=== PATIENT | male | born 1945 | race Caucasian/White ===

== ENCOUNTER 2018-02-13 06:33 | Day surgery (SDC) | payer MEDICARE, BC, SELFPAY ==
[2018-02-03 12:48] VITALS: BMI 23.7
[2018-02-13] VITALS (7 sets, daily range): BP systolic 134–145; BP diastolic 69–80; PULSE 61–70; RESP 14–16; TEMP 36.4–36.8; O2SAT 97–100; BMI 23.7
[2018-02-13] MEDS: LACTATED RINGERS 1,000 ML 42 ML IV (07:35)
[2018-02-13] MEDS: CLINDAMYCIN 900 MG/50 ML PIGGYBACK 50 MG IV (07:40)
--- NOTE | 2018-02-13 08:14 | SUR.OPER ---
Supine on padded OR bed, head on pillow, arms secured on padded arm boards at <90 degrees abduction, legs uncrossed, safety belt at thigh, tape over blanket over lower legs.
[2018-02-13] MEDS: BUPIVACAINE 0.5% (PF) VIAL 30 ML INJ (08:25)
--- NOTE | 2018-02-13 09:05 | PM.PREOP ---
Pre-operative Note Interval Note Pre-op Check: Yes History & Physical Reviewed by Physician and Yes Exam Performed Changes: No
--- NOTE | 2018-02-13 09:07 | PM.OP.1 ---
Operative Date/Time/Diagnoses Date of procedure: 02/13/18 Time of procedure: 09:07 Pre-op diagnosis: Left inguinal hernia reducible without strangulation or incarceration. Post-op diagnosis: same (Direct hernia) Procedure & Clinicians Procedure: Repair with plug and patch technique Same procedure as scheduled: Yes Indications: Symptomatic left inguinal hernia Surgeon: John Avila Click Yes if Unassisted: Yes Anesthesia Type: General Operative Notes Findings: Weakened floor Closure Type: primary Specimen(s): none sent Implants & Drains: Mesh Estimated Blood Loss (mL): 5 Blood products transfused: none Procedure in detail: The patient was placed supine on the operating room table and underwent general LMA anesthesia. He was prepped and draped in the usual fashion. A transverse incision was made overlying the internal ring and carried down to the level of the external oblique. The external oblique was opened parallel with its fibers through the external ring. The cord structures were elevated. The cremaster was opened proximally and search made for an indirect sac. None was found. The floor was examined and was found to be markedly attenuated creating a direct hernia. The floor was opened a large plug pace beneath it. It was tacked into place with interrupted 0 Tycron sutures. The the attenuated tissues were then closed over the plug and a patch was placed across the floor. It was tacked at the pubic tubercle, the posterior lamella of the anterior rectus sheath, the ilioinguinal ligament, and superior lateral to the cord. The opening was modified as necessary to prevent tight constriction of the cord. Sutures of 0 Tycron were used to secure the mesh. The external oblique was closed with a running 3 0 Polysorb. The subcu was closed with interrupted 3 0 Polysorb. The skin was closed with a running 4 0 Polysorb subcuticular stitch and Steri-Strips. Dressing was applied, the patient was awakened, and the patient was taken to the recovery area in good condition. Complications: none Condition: stable Disposition: PACU Plan for aftercare: Follow-up in the office in 1-2 weeks
== END 2018-02-13 09:15 | disposition home or self-care (01) ==
PROVIDERS: PCP Internal Medicine; Visit Provider Specialist
PROC: (CPT 49505; principal; 2018-02-13 07:45)
DX: K40.90 Unilateral inguinal hernia, without obstruction or gangrene, not specified as recurrent (principal); E78.00 Pure hypercholesterolemia, unspecified; I10 Essential (primary) hypertension; Z79.01 Long term (current) use of anticoagulants; Z86.718 Personal history of other venous thrombosis and embolism
CPT/HCPCS: 49505; C1781; J2250; J2405; J2704; J3010

== ENCOUNTER → 2019-01-28 10:19 | Outpatient (CLI) | payer MEDICARE, BC, SELFPAY ==
[2019-01-28 11:33] LABS: HEMOLYSIS < 15 (0-50); Potassium 4.7 mmol/L (3.4-5.1)
[2019-01-28 11:34] LABS: Aspartate Aminotransferase 31 IU/L (17-59); BUN Creatinine Ratio 18.8 (6-22); Blood Urea Nitrogen 15 mg/dL (9-20); Calcium 9.1 mg/dL (8.4-10.2); Carbon Dioxide 28 mmol/L (22-32); Chloride 105 mmol/L (98-107); Cholesterol 148 mg/dL (140-199); Estimated Glomerular Filt Rate > 60.0 mL/min (>60); Glucose 106 mg/dL (80-110); HDL Cholesterol 35 mg/dL (40-60); LDL Cholesterol Calculated 91 mg/dL (<100); Sodium 141 mmol/L (137-145); Triglycerides 111 mg/dL (35-150)
[2019-01-28 11:56] LABS: Prostate Specific Antigen 0.869 ng/mL (0.10-4.00)
== END ==
PROVIDERS: PCP Internal Medicine; Visit Provider Internal Medicine
DX: I10 Essential (primary) hypertension (principal); N40.0 Benign prostatic hyperplasia without lower urinary tract symptoms
CPT/HCPCS: 36415; 80048; 80061; 84153; 84450

== ENCOUNTER 2019-02-13 09:13 | Emergency (ER) | payer MEDICARE, BC, SELFPAY ==
[2019-02-13 09:22] VITALS: BP 167/82; PULSE 75; RESP 16; TEMP 36.8; O2SAT 98; BMI 25.0
--- NOTE | 2019-02-13 09:48 | DI.US.S_ITS ---
PROCEDURE: US PERIPH VENOUS LOW EXTREM LT INDICATIONS: LEFT CALF LUMP; HX DVT TECHNIQUE: Real-time imaging, as well as color and pulse Doppler interrogation, were performed of the lower extremity deep veins from the inguinal ligament to the popliteal fossa. COMPARISON: None. FINDINGS: The common femoral, femoral and popliteal veins are normally compressible, and free of intraluminal thrombus. Color and pulse Doppler demonstrate normal phasic intraluminal flow. There is normal augmentation response to distal compression maneuver. IMPRESSION: The area of current clinical concern represents a left calf area varicosities with minimal internal superficial venous thrombosis. No deep venous thrombosis is found. Dictated by: Esvin Medina M.D. on 02/13/2019 at 10:23 Approved by: Esvin Medina M.D. on 02/13/2019 at 10:24
[2019-02-13 10:14] LABS: INR 1.6 (0.9-1.3)
[2019-02-13 10:21] VITALS: BP 136/69; PULSE 59; RESP 12; O2SAT 95
--- NOTE | 2019-02-13 10:51 | ED_ITS ---
HPI - Extremity Problem General Chief complaint: Extremity Problem,Nontraumatic Stated complaint: blood clot in left lower leg Time Seen by Provider: 02/13/19 09:37 Source: patient Mode of arrival: ambulatory Limitations: no limitations History of Present Illness HPI Narrative: Patient comes emergency department complaining of pain, swelling and redness on an area of his posterior left calf. He says he just noticed this this morning, although he has been in gross to in taking care of his ailing mother, who just last night. 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 Patient has also had a PE in the past. He is on Coumadin and denies any recent dose changes. Patient denies any chest pain or shortness of breath. No nausea or vomiting. Patient denies any fevers. No other complaints at this time. Related Data Home Medications Medication Instructions Recorded Confirmed losartan 50 mg-hydrochlorothiazide 1 tab PO DAILY 01/22/18 02/13/19 12.5 mg tablet pravastatin 20 mg tablet 20 mg PO DAILY 01/22/18 02/13/19 warfarin 5 mg PO SUMOWETHSA 02/03/18 02/13/19 warfarin 2.5 mg PO THFR 02/13/19 02/13/19 Previous Rx's Medication Instructions Recorded sulfamethoxazole-trimethoprim 1 tab PO Q12H #14 tab 02/13/19 [Bactrim DS] Allergies Allergy/AdvReac Type Severity Reaction Status Date / Time cephalexin [CEPHALEXIN] Allergy Unknown Burning & Verified 02/13/19 09:26 nausea erythromycin base Allergy Unknown Diarrhea, Verified 02/13/19 09:26 [ERYTHROMYCIN BASE] burning, nausea latex Allergy Unknown Skin Verified 02/13/19 09:26 peels off morphine Allergy Unknown Body rash, Verified 02/13/19 09:26 Itching oxycodone Allergy Hives Verified 02/13/19 09:26 Penicillins Allergy Verified 02/13/19 09:26 Review of Systems Constitutional Constitutional: Denies chills, Denies fatigue, Denies fever(s), Denies frequent falls, Denies lethargy and Denies weakness Eyes Eyes: Denies change in vision, Denies eye discharge, Denies irritation and Denies loss of vision ENT Ears, Nose, Mouth, and Throat: Denies change in voice, Denies dizziness, Denies neck pain, Denies sore throat and Denies throat swelling Cardiovascular Cardiovascular: Denies chest pain, Denies irregular heart rhythm, Denies lightheadedness, Denies palpitations, Denies dyspnea, Denies dyspnea on exertion and Denies orthopnea Respiratory Respiratory: Denies cough, Denies dyspnea, Denies dyspnea on exertion and Denies wheezing Gastrointestinal Gastrointestinal: Denies abdominal pain, Denies change in bowel habits, Denies diarrhea, Denies nausea and Denies vomiting Genitourinary Genitourinary: Denies hematuria, Denies flank pain, Denies urinary incontinence and Denies urinary urgency Musculoskeletal Musculoskeletal: Denies back pain, Denies muscle weakness, Denies neck pain, Denies numbness and Denies tingling Integumentary/Breasts Skin/Breast: Denies pruritus, Denies erythema, Denies rash and Denies wounds Comments: Swelling, redness, left calf. Neurologic Neurologic: Denies behavioral changes, Denies confusion, Denies dizziness, Denies frequent falls, Denies loss of vision, Denies numbness, Denies tingling and Denies weakness Psychiatric Psychiatric: Denies anxiety, Denies behavioral changes, Denies confusion, Denies depression, Denies homicidal ideation and Denies suicidal ideation Endocrine Endocrine: Denies fatigue, Denies flushing and Denies palpitations Hematologic/Lymphatic Hematologic/Lymphatic: Denies easy bruising Allergic/Immunologic Allergic/Immunologic: Denies urticaria, Denies throat swelling and Denies wheezing [facility] Medical History Chronic anticoagulation (Chronic) Elevated cholesterol (Chronic) Esophageal cancer (Acute ~2000) Essential hypertension with goal blood pressure less than 130/85 (Chronic) History of DVT of lower extremity (Chronic) History of headache (Acute) History of pneumonia (Acute) History of sarcoma (Resolved) Impotence (Acute) Left inguinal hernia (Acute) Surgical History History of bowel resection (Resolved) History of resection of stomach (Resolved) History of right inguinal hernia repair (Resolved) History of right inguinal hernia repair (Acute) History of shoulder surgery (Acute) History of vasectomy (Resolved) History of ventral hernia repair (Resolved) Status post repair of recurrent ventral hernia (Resolved) Social History household members: spouse Smoking Status: Never smoker Social History household members: spouse Smoking Status: Never smoker Exam Initial Vital Signs Initial Vital Signs: Vital Signs Temperature 98.3 F 02/13/19 09:22 Pulse Rate 75 02/13/19 09:22 Respiratory Rate 16 02/13/19 09:22 Blood Pressure 167/82 H 02/13/19 09:22 Pulse Oximetry 98 02/13/19 09:22 Const General: cooperative and well developed Nutritional Appearance: well nourished Orientation: alert, awake, oriented x3 and not confused HENMT Head: normocephalic and atraumatic Ears: external ears normal and TM's normal bilaterally Nose: external nose normal and No nasal discharge Face and sinus: sinuses nontender, face symmetric, no sinus tenderness and No dry mucous membranes Mouth: oral mucosae normal and moist mucous membranes Teeth and gingiva: dentition normal Throat: tonsils normal and uvula midline Eyes General: appearance normal, both eyes and all related structures Eyelids: eyelids normal Conjunctivae: conjunctivae normal Sclera: sclerae normal Pupils: PERRL EOM: EOM intact bilaterally Neck Neck: normal visual inspection, trachea midline, No lymphadenopathy, No midline deformity and No JVD Lymphatic: No lymphedema Chest Chest: normal inspection of the chest Resp Effort & Inspection: normal respiratory effort, able to speak in complete sentences, no respiratory distress and no use of accessory muscles Auscultation: clear to auscultation bilaterally, no rales, no rhonchi and no wheezes Cardio Rate: regular rate Rhythm: regular rhythm Heart Sounds: no click, no gallops, no murmurs and no rubs Pulses: normal peripheral pulses GI Inspection: non-distended Palpation: soft, no hepatosplenomegaly, No guarding, No pulsatile mass and No tender Auscultation: normal bowel sounds Back/Spine/Pelvis Back: No CVA tenderness Cervical Spine: cervical ROM normal and No pain with cervical ROM Thoracic/Lumbar Spine: thoracic and lumbar spine normal to inspection Skin General: no rashes or lesions noted, No jaundice and No petechiae Neuro General: alert, oriented x3, gait normal and no focal motor deficits Speech: speech normal Extrem General: full ROM, no clubbing, cyanosis or edema, no pedal edema and no calf tenderness Psych Appearance: well kempt Mental Status: mental status grossly normal Attitude: cooperative Thought Content: normal and suicidality Judgment: judgment good Course Course Course Narrative: Ultrasound was performed in the emergency department, and patient was found to have superficial clotting only. Patient was also found to have a subtherapeutic INR. I discussed these issues with the patient, and I have advised him that he needs to take an extra dose of his Coumadin today. Patient should then remain on his normal doses daily until he is seen on the 18 of February for his next INR drop. Patient is agreeable to this plan. I will give him a short course of antibiotics for the erythema and inflammation in his calf. We have discussed home management of symptoms, as well as the usual indications for return. Orders Ordered: ED Orders 02/13/19 09:48 US perip venous low extrem lt Stat 02/13/19 10:00 PT [Prothrombin Time INR] Stat Vital Signs Vital signs: Vital Signs - 8 hr 02/13/19 09:22 02/13/19 10:21 Temperature 98.3 F Pulse Rate 75 59 L Respiratory Rate 16 12 Blood Pressure 167/82 H Blood Pressure [Right Arm] 136/69 Pulse Oximetry 98 95 MDM - Extremity (Nontraumatic) Medical Records Attestation: I reviewed the patient's medical records. Lab Data Attestation: I reviewed the patient's lab results. Labs: Lab Results 02/13/19 Range/Units 10:00 PT 19.0 H (10.1-12.7) SECONDS INR 1.6 H (0.9-1.3) Imaging Data Venous US: Radiologist's impression: [address] [address] Ultrasound Report Signed Patient: Giles Shabazz FMR#: [id number] : 7Acct:[id number] Age/Sex: 73 / MDate of Service: 02/13/19 Loc: ED Accession Number: [id number] Procedure: US perip venous low extrem lt Ordering Provider: Judi Maya MD PROCEDURE: US PERIPH VENOUS LOW EXTREM LT INDICATIONS: LEFT CALF LUMP; HX DVT TECHNIQUE: Real-time imaging, as well as color and pulse Doppler interrogation, were performed of the lower extremity deep veins from the inguinal ligament to the popliteal fossa. COMPARISON: None. FINDINGS: The common femoral, femoral and popliteal veins are normally compressible, and free of intraluminal thrombus. Color and pulse Doppler demonstrate normal phasic intraluminal flow. There is normal augmentation response to distal compression maneuver. IMPRESSION: The area of current clinical concern represents a left calf area varicosities with minimal internal superficial venous thrombosis. No deep venous thrombosis is found. Dictated by: Esvin Medina M.D. on 02/13/2019 at 10:23 Approved by: Esvin Medina M.D. on 02/13/2019 at 10:24 Discharge Plan Departure Patient Disposition: Home Clinical Impression: Phlebitis of superficial vein of left lower extremity Discharge Date/Time: 02/13/19 11:25 Instructions: Superficial Thrombophlebitis Activity Restrictions/Additional Instructions: Your ultrasound does not show a deep venous clot. You have a superficial clot, which will most likely go away on its own, especially with optimization of your Coumadin. Your INR was found to be somewhat low at 1.6, and it is advisable for you to take an extra dose of your Coumadin today. Please have your INR rechecked within the next few days to make sure that your Coumadin dosing is adequate. Please take the antibiotics, as prescribed. Your prescription has been electronically transmitted to [facility] in [place]. Prescriptions: New sulfamethoxazole-trimethoprim [Bactrim DS] 800-160 mg tablet 1 tab PO Q12H Qty: 14 RF: 0 No Action losartan-hydrochlorothiazide 50-12.5 mg tablet 1 tab PO DAILY RF: 0 pravastatin 20 mg tablet 20 mg PO DAILY RF: 0 warfarin 5 mg Tablet 5 mg PO SUMOWETHSA RF: 0 warfarin 5 mg tablet 2.5 mg PO THFR RF: 0 Referrals: Ori Peter MD [Primary Care Provider] -
[2019-02-13 11:00] VITALS: BP 137/70; PULSE 57; RESP 16; O2SAT 97
== END 2019-02-13 11:25 | disposition home or self-care (01) ==
PROVIDERS: Emergency Provider Emergency Medicine; PCP Internal Medicine
DX: I80.02 Phlebitis and thrombophlebitis of superficial vessels of left lower extremity (principal); Z79.01 Long term (current) use of anticoagulants
CPT/HCPCS: 36415; 85610; 93971; 99282; 99284

== ENCOUNTER → 2020-02-03 15:10 | Outpatient (ROUT) | payer MEDICARE, BC, SELFPAY ==
[2020-02-03 15:53] LABS: Add Manual Diff / Slide Review NO; Basophils Absolute Auto 0 /uL (0-100); Basophils Percent Auto 0.6 % (0-2); Eosinophils Absolute Auto 100 /uL (0-450); Hematocrit 43.9 % (41-53); Hemoglobin 14.7 g/dL (13.5-17.5); Lymphocytes Absolute Auto 500 /uL (1100-4500); Lymphocytes Percent Auto 11.5 % (25-40); Mean Corpuscular HGB Conc 33.5 % (30-36); Mean Corpuscular Hemoglobin 30.7 PG (26-34); Mean Corpuscular Volume 91.5 fL (80-100); Monocytes Absolute Auto 600 /uL (0-900); Monocytes Percent Auto 12.1 % (3-14); Neutrophils Absolute Auto 3400 /uL (1500-7000); Neutrophils Percent Auto 73.8 % (50-75); Platelet Count 197 X10^3/uL (150-400); Red Cell Distribution Width 13.3 % (11.6-14.8); White Blood Cell Count 4.5 X10^3/uL (4.5-11.0)
[2020-02-03 16:11] LABS: Aspartate Aminotransferase 36 IU/L (17-59); BUN Creatinine Ratio 16.7 (6-22); Blood Urea Nitrogen 13 mg/dL (9-20); Calcium 9.2 mg/dL (8.4-10.2); Carbon Dioxide 27 mmol/L (22-32); Chloride 101 mmol/L (98-107); Cholesterol 124 mg/dL (140-199); Estimated Glomerular Filt Rate > 60.0 mL/min (>60); Glucose 89 mg/dL (80-110); HDL Cholesterol 27 mg/dL (40-60); HEMOLYSIS < 15 (0-50); LDL Cholesterol Calculated 82 mg/dL (<100); Sodium 136 mmol/L (137-145); Triglycerides 75 mg/dL (35-150)
[2020-02-03 16:37] LABS: Prostate Specific Antigen 0.873 ng/mL (0.10-4.00)
== END ==
PROVIDERS: PCP Internal Medicine; Visit Provider Internal Medicine
DX: I26.99 Other pulmonary embolism without acute cor pulmonale (principal); I10 Essential (primary) hypertension; E78.2 Mixed hyperlipidemia
CPT/HCPCS: 80048; 80061; 84153; 84450; 85025

== ENCOUNTER → 2020-04-09 09:17 | Outpatient (CLI) | payer MEDICARE, BC, SELFPAY ==
[2020-04-11 02:13] LABS: COVID19 Sendout Not Detected (Not Detect)
== END ==
PROVIDERS: PCP Internal Medicine; Visit Provider Student in an Organized Health Care Education/Training Program
DX: Z11.59 Encounter for screening for other viral diseases (principal)
CPT/HCPCS: 87635

== ENCOUNTER 2020-04-12 06:45 | Day surgery (SDC) | payer MEDICARE, BC, SELFPAY ==
[2020-04-12] MEDS: PROPARACAINE 0.5% OPHTH SOL 2 DROPS EYE-OP (07:34)
[2020-04-12 07:35] VITALS: BP 136/69; PULSE 79; RESP 17; TEMP 36.9; BMI 50.8
[2020-04-12] MEDS: CATARACT EYE COMPOUND (10 DROPS/SYRINGE) 3 DROPS EYE-OP (07:40)
--- NOTE | 2020-04-12 08:42 | PM.PREOP ---
Pre-operative Note Interval Note History & Physical reviewed/Exam performed by Physician: Yes Changes to H&P: No
--- NOTE | 2020-04-12 08:42 | PM.OP.1 ---
Operative Date/Time/Diagnoses Pre-op diagnosis: Nuclear cataract right eye Procedure & Clinicians Procedure: Cataract Surgery Same procedure as scheduled: Yes Surgeon: Mo Love Anesthesia Type: MAC +/- and Sedation Operative Notes Procedure in detail: Patient brought to the operating suite. Tetracaine drops placed in the right eye. Patient was prepped and draped in sterile manner. Wire lid speculum was placed in the eye. Betadine drops were placed on the eye. This was irrigated. Lidocaine jelly was placed on the eye. A paracentesis port was created with a side-port blade. 0.1 mL 1% preservative free lidocaine was injected into the anterior chamber. The anterior chamber was deepened with viscoelastic. 2.6 mm keratome was used to create a temporal clear corneal incision. Cystotome and Utrata forceps were used to create continuous tear capsulorrhexis. Balanced salt solution was used to hydro dissect the nucleus. The phacoemulsification handpiece was inserted and the nucleus was removed using the stop and chop technique. The irrigation aspiration handpiece was inserted and the remaining cortex was removed. Anterior chamber was deepened with viscoelastic. An Olson ZCB00 intraocular lens with a power of 20.5 was injected into the capsular bag. Irrigation aspiration handpiece was inserted and the remaining viscoelastic was removed. Incision was hydrated with balanced salt solution and found to be leak free with pressure with Weck-Kim sponges. 0.1 mL Vigamox injected anterior chamber. 0.3 mL Kenalog 10 mg was injected subconjunctivally. Lid speculum was removed. The patient left the operating room in excellent condition. Complications: none Post-operative Condition: stable Disposition: same day surgery
[2020-04-12] MEDS: LIDOCAINE JELLY 2% 5 ML 1 APPLIC TOP (08:58)
[2020-04-12] MEDS: PHENYLEPHRINE/LIDOCAINE VIAL (OR) 0.2 ML EYE-OP (08:58)
[2020-04-12] MEDS: CHONDROIDTIN/SOD HYALURONATE 1.05 ML SYRINGE INTRAOCULA (08:58)
[2020-04-12] MEDS: MOXIFLOXACIN INJ 5 MG/ML VIAL EYE-OP (08:58)
[2020-04-12] MEDS: TRIAMCINOLONE 50 MG/5 ML VIAL INJ (08:59)
[2020-04-12] MEDS: BALANCED SALT IRRIG SOLN NO.2 500 ML, EPINEPHrine 1 MG IRR (08:59)
[2020-04-12] MEDS: TETRACAINE 0.5% OPHTH DROPS 4 ML 2 DROPS EYE-OP (08:59)
[2020-04-12 09:15] VITALS: BP 137/70; PULSE 60; RESP 16; TEMP 36.3; O2SAT 99
== END 2020-04-12 09:37 | disposition home or self-care (01) ==
PROVIDERS: PCP Internal Medicine; Referring Provider Internal Medicine; Visit Provider Ophthalmology
PROC: (CPT 66984; principal; 2020-04-12 08:45)
DX: H25.11 Age-related nuclear cataract, right eye (principal); J45.909 Unspecified asthma, uncomplicated; I10 Essential (primary) hypertension
CPT/HCPCS: 66984; J0171; J2250; J3010; J3301

== ENCOUNTER → 2020-04-24 08:56 | Outpatient (CLI) | payer MEDICARE, BC, SELFPAY ==
[2020-04-25 20:14] LABS: COVID19 Sendout Not Detected (Not Detect)
== END ==
PROVIDERS: PCP Internal Medicine; Visit Provider Physician Assistant
DX: Z11.59 Encounter for screening for other viral diseases (principal)
CPT/HCPCS: 87635

== ENCOUNTER 2020-04-26 06:35 | Day surgery (SDC) | payer MEDICARE, BC, SELFPAY ==
[2020-04-26] MEDS: PROPARACAINE 0.5% OPHTH SOL 2 DROPS EYE-OP (07:37)
[2020-04-26] MEDS: CATARACT EYE COMPOUND (10 DROPS/SYRINGE) 3 DROPS EYE-OP (07:41)
[2020-04-26 07:42] VITALS: BMI 23.0
[2020-04-26 07:48] VITALS: BP 137/73; PULSE 63; RESP 16; TEMP 36.5; O2SAT 99
--- NOTE | 2020-04-26 08:39 | P.OP_ITS ---
Operative Date/Time/Diagnoses Pre-op diagnosis: Nuclear Cataract Left eye Post-op diagnosis: same Procedure & Clinicians Same procedure as scheduled: Yes Surgeon: Mo Love Anesthesia Type: MAC +/- and Sedation Operative Notes Procedure in detail: Patient brought to the operating suite. Tetracaine drops placed in the left eye. Patient was prepped and draped in sterile manner. Wire lid speculum was placed in the eye. Betadine drops were placed on the eye. This was irrigated. Lidocaine jelly was placed on the eye. A paracentesis port was created with a side-port blade. 0.1 mL 1% preservative free lidocaine was injected into the anterior chamber. The anterior chamber was deepened with viscoelastic. 2.6 mm keratome was used to create a temporal clear corneal incision. Cystotome and Utrata forceps were used to create continuous tear capsulorrhexis. Balanced salt solution was used to hydro dissect the nucleus. The phacoemulsification handpiece was inserted and the nucleus was removed using the stop and chop technique. The irrigation aspiration handpiece was inserted and the remaining cortex was removed. Anterior chamber was deepened with viscoe lastic. An Olson ZCB00 intraocular lens with a power of 20.5 was injected into the capsular bag. Irrigation aspiration handpiece was inserted and the remaining viscoelastic was removed. Incision was hydrated with balanced salt solution and found to be leak free with pressure with Weck-Kim sponges. 0.1 mL Vigamox injected anterior chamber. 0.3 mL Kenalog 10 mg was injected subconjunctivally. Lid speculum was removed. The patient left the operating room in excellent condition. Complications: none Post-operative Condition: stable Disposition: same day surgery
--- NOTE | 2020-04-26 08:39 | PM.PREOP ---
Pre-operative Note Interval Note History & Physical reviewed/Exam performed by Physician: Yes Changes to H&P: No
[2020-04-26] MEDS: PHENYLEPHRINE/LIDOCAINE VIAL (OR) 0.2 ML EYE-OP (08:57)
[2020-04-26] MEDS: CHONDROIDTIN/SOD HYALURONATE 1.05 ML SYRINGE INTRAOCULA (08:57)
[2020-04-26] MEDS: MOXIFLOXACIN INJ 5 MG/ML VIAL EYE-OP (08:57)
[2020-04-26] MEDS: LIDOCAINE JELLY 2% 5 ML 1 APPLIC TOP (08:57)
[2020-04-26] MEDS: TETRACAINE 0.5% OPHTH DROPS 4 ML 2 DROPS EYE-OP (08:58)
[2020-04-26] MEDS: TRIAMCINOLONE 50 MG/5 ML VIAL INJ (08:58)
[2020-04-26] MEDS: BALANCED SALT IRRIG SOLN NO.2 500 ML, EPINEPHrine 1 MG IRR (08:59)
[2020-04-26 09:15] VITALS: BP 119/66; PULSE 64; RESP 16; TEMP 36.4; O2SAT 98
== END 2020-04-26 09:30 | disposition home or self-care (01) ==
PROVIDERS: PCP Internal Medicine; Referring Provider Internal Medicine; Visit Provider Ophthalmology
PROC: (CPT 66984; principal; 2020-04-26 08:45)
DX: H25.12 Age-related nuclear cataract, left eye (principal); J45.909 Unspecified asthma, uncomplicated; I10 Essential (primary) hypertension; E78.5 Hyperlipidemia, unspecified
CPT/HCPCS: 66984; J0171; J2250; J3010; J3301

== ENCOUNTER 2020-06-14 09:17 | Emergency (ER) | payer MEDICARE, BC, SELFPAY ==
[2020-06-14 09:28] VITALS: BP 156/75; PULSE 73; RESP 14; TEMP 36.7; O2SAT 98; BMI 22.2
--- NOTE | 2020-06-14 09:50 | DI.US.S_ITS ---
PROCEDURE: [facility] VENOUS LOW EXTREM LT INDICATIONS: LUMP; HISTORY DVT TECHNIQUE: Real-time imaging, as well as color and pulse Doppler interrogation, were performed of the lower extremity deep veins from the inguinal ligament to the popliteal fossa. COMPARISON: [facility], , [facility] VENOUS LOW EXTREM LT, 02/13/2019, 10:10. FINDINGS: The common femoral, femoral and popliteal veins are normally compressible, and free of intraluminal thrombus. Color and pulse Doppler demonstrate normal phasic intraluminal flow. There is normal augmentation response to distal compression maneuver. In the area of current clinical concern at the upper medial calf there is a thrombosed superficial vein. IMPRESSION: No DVT found. Thrombosed small superficial vein at the upper medial calf found in the area of current clinical concern. Dictated by: Esvin Medina M.D. on 06/14/2020 at 10:53 Approved by: Esvin Medina M.D. on 06/14/2020 at 10:54
--- NOTE | 2020-06-14 10:31 | ED_ITS ---
HPI - Extremity Problem <DANNIELLE Stearns - Last Filed: 06/14/20 12:43> General Chief complaint: Extremity Problem,Nontraumatic Stated complaint: blood clots Time Seen by Provider: 06/14/20 09:48 Source: patient Mode of arrival: Ambulatory Limitations: no limitations History of Present Illness HPI Narrative: This is a 74-year-old male, nonsmoker, who has past medical history significant for AFib, DVT, hypertension, and hyperlipidemia takes Coumadin presents to ED with left calf knot which is red, swollen, and painful to palpate for last 1.5 week. Patient denies fever, chills, nausea, vomiting, chest pain, breathing difficulty. 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 He was evaluated by Dr. Joe and had INR checked this morning which was 2.5 with goal of 2-3. Related Data Home Medications Medication Instructions Recorded Confirmed losartan 50 mg-hydrochlorothiazide 1 tab PO DAILY 01/22/18 04/26/20 12.5 mg tablet pravastatin 20 mg tablet 20 mg PO DAILY 01/22/18 04/26/20 warfarin 5 mg PO SUMOWETHSA 02/03/18 04/26/20 warfarin See Rx Instructions .ROUTE .COMPLEX 02/13/19 04/26/20 Allergies Allergy/AdvReac Type Severity Reaction Status Date / Time cephalexin [CEPHALEXIN] Allergy Unknown Burning & Verified 06/14/20 09:31 nausea erythromycin base Allergy Unknown Diarrhea, Verified 06/14/20 09:31 [ERYTHROMYCIN BASE] burning, nausea latex Allergy Unknown Skin Verified 06/14/20 09:31 peels off morphine Allergy Unknown Body rash, Verified 06/14/20 09:31 Itching oxycodone Allergy Hives Verified 06/14/20 09:31 Penicillins Allergy Rash Verified 06/14/20 09:31 Review of Systems <DANNIELLE Stearns - Last Filed: 06/14/20 12:43> Review of Systems Narrative: General: Denies fever, chills, fatigue, malaise, sweats. HEENT: Denies sinus pain, ear pain, sore throat, difficulty swallowing, dizziness. Respiratory: Denies dyspnea, cough, wheezing, hemoptysis, sputum. Cardiovascular: Denies chest pain, palpitations, orthopnea, edema. Gastrointestinal: Denies nausea, vomiting, abdominal pain, diarrhea, constipation, melena. : Denies dysuria, frequency, incontinence, hematuria, urinary retention. Musculoskeletal: See HPI Skin: See HPI Neurologic: Denies weakness, headache, numbness, change in speech, confusion, seizures, incoordination. Psychiatric: No concerning psychosocial issues. 12-point review of systems is negative except for those stated above. Patient History <DANNIELLE Stearns - Last Filed: 06/14/20 12:43> Medical History (Updated 06/14/20 @ 11:14 by DANNIELLE Stearns) Chronic anticoagulation Elevated cholesterol Esophageal cancer (~2000) Essential hypertension with goal blood pressure less than 130/85 History of DVT of lower extremity History of headache History of pneumonia History of sarcoma Impotence Left inguinal hernia Surgical History History of bowel resection History of resection of stomach History of right inguinal hernia repair History of right inguinal hernia repair History of shoulder surgery History of vasectomy History of ventral hernia repair Status post repair of recurrent ventral hernia Social History household members: spouse Smoking Status: Never smoker alcohol intake: former Smoking Status: Never smoker alcohol intake frequency: holidays/special occasions only Substance Use Type: does not use Exam <DANNIELLE Stearns - Last Filed: 06/14/20 12:43> Narrative Exam Narrative: General appearance: well developed, well nourished, in no acute distress. Head: normocephalic, atraumatic, no scalp lesions, non-tender. ENT: Hearing grossly intact. Airway patent. Neck/Thyroid: neck supple, full range of motion, no visible masses or meningeal signs. No JVD, non-tender without lymphadenopathy. Skin: 4x3 cm erythematous, hard to palpate nodule in left calf with tenderness to palpate. Warm and dry and appropriate color for ethnicity. Heart: no clubbing, no cyanosis, no edema. S1 and S2 normal. RRR w/o murmurs, clicks, or bruits. Lungs: Breathing even and unlabored. No stridor. No accessory muscles used. Able to speak in full sentences. Chest: normal shape and expansion. Abdomen: non-obese, non-distended. Neurologic: alert and oriented. Cognitive exam, [employer] and PNS grossly intact on informal exam. Psych: good eye contact, normal affect. Initial Vital Signs Initial Vital Signs: Vital Signs Temperature 98.1 F 06/14/20 09:28 Pulse Rate 73 06/14/20 09:28 Respiratory Rate 14 06/14/20 09:28 Blood Pressure 156/75 H 06/14/20 09:28 Pulse Oximetry 98 06/14/20 09:28 <Esme Sen DO - Last Filed: 06/14/20 18:50> Initial Vital Signs Initial Vital Signs: Vital Signs Temperature 98.1 F 06/14/20 09:28 Pulse Rate 73 06/14/20 09:28 Respiratory Rate 14 06/14/20 09:28 Blood Pressure 156/75 H 06/14/20 09:28 Pulse Oximetry 98 06/14/20 09:28 Scores <DANNIELLE Stearns - Last Filed: 06/14/20 12:43> GCS [place] coma scale eye opening: Spontaneous Ward coma scale verbal response: Orientated Ward coma scale motor response: Obey commands Ward coma scale total score: 15 qSOFA Altered Mental Status (GCS <15): No Respiratory rate greater than/equal to 22: No Systolic blood pressure less than or equal to 100: No qSOFA Total: 0 0-1 Not High Risk 1-3 High risk Course <DANNIELLE Stearns - Last Filed: 06/14/20 12:43> Orders Ordered: ED Orders 06/14/20 09:50 [facility] venous low extrem lt Stat Vital Signs Vital signs: Vital Signs - 8 hr 06/14/20 11:18 Pulse Rate 61 Respiratory Rate 15 Blood Pressure 133/65 Pulse Oximetry 100 <Esme Sen DO - Last Filed: 06/14/20 18:50> Orders Ordered: ED Orders 06/14/20 09:50 [facility] venous low extrem lt Stat Vital Signs Vital signs: Vital Signs - 8 hr 06/14/20 11:18 Pulse Rate 61 Respiratory Rate 15 Blood Pressure 133/65 Pulse Oximetry 100 MDM - Extremity (Nontraumatic) <DANNIELLE Stearns - Last Filed: 06/14/20 12:43> Differential Diagnosis Differential diagnosis: Likely cellulitis, superficial thrombophlebitis and deep vein thrombosis of lower extremity Medical Records Attestation: I reviewed the patient's medical records. Imaging Data US - DVT: Radiologist's Impression: Giles Shabazz 74 M [address] [address]Uotoclplcl ReportSigned Patient: Giles Shabazz FMR#: [id number]: 7Acct:[id number]/Sex: 74 / MDate of Service: 06/14/20Loc: EDAccession Number: [id number] Procedure: US perip venous low extrem lt Ordering Provider: Esme Sen D.O. PROCEDURE: US PERIP VENOUS LOW EXTREM LT INDICATIONS: LUMP; HISTORY DVT TECHNIQUE: Real-time imaging, as well as color and pulse Doppler interrogation, were performed of the lower extremity deep veins from the inguinal ligament to the popliteal fossa. COMPARISON: [facility], PERIP VENOUS LOW EXTREM LT, 02/13/2019, 10:10. FINDINGS: The common femoral, femoral and popliteal veins are normally compressible, and free of intraluminal thrombus. Color and pulse Doppler demonstrate normal phasic intraluminal flow. There is normal augmentation response to distal compression maneuver. In the area of current clinical concern at the upper medial calf there is a thrombosed superficial vein. IMPRESSION: No DVT found. Thrombosed small superficial vein at the upper medial calf found in the area of current clinical concern. Dictated by: Esvin Medina M.D. on 06/14/2020 at 10:53 Approved by: Esvin Medina M.D. 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 Is currently taking Coumadin and had INR checked this morning at the doctor's office which was 2.5 within therapeutic range. Patient has intact sensation, distal pulses. Physical exam appreciated swelling, redness, warmth to left calf which is tender to palpate. Ultrasound DVT test was negative but thrombus of small superficial vein at the upper medial calf found. Considered for cellulitis but patient does not endorses any c onstitutional symptoms. Patient advise continue to use compression stocking, warm pack, and current medications. Return precautions were discussed with patient and he verbalized understanding and agreement with the treatment plan. Discharge Plan Departure Patient Disposition: Home Clinical Impression: Superficial thrombosis of left lower extremity Instructions: DI for Superficial Thrombophlebitis Activity Restrictions/Additional Instructions: You have been diagnosed with [left lower extremity superficial of vein thrombosis in calf. Please use warm compress on affected site]. What to do: *Take your medications as directed. *Follow up with your primary care provider in 2-3 days, call for an appointment. Let them know you were seen in the ED and that we asked you to be seen in follow up. *Return to ED if you have any new, worsening, or concerning symptoms, such as [worsening pain, fever, chills, chest pain, breathing difficulty, unable to tolerate medications, or any acute concerns]. Prescriptions: No Action losartan-hydrochlorothiazide 50-12.5 mg tablet 1 tab PO DAILY RF: 0 pravastatin 20 mg tablet 20 mg PO DAILY RF: 0 warfarin 5 mg Tablet 5 mg PO SUMOWETHSA RF: 0 warfarin 5 mg tablet See Rx Instructions .ROUTE .COMPLEX RF: 0 Referrals: Ori Peter MD [Primary Care Provider] - <Esme Sen DO - Last Filed: 06/14/20 18:50> Cosign ED Attending Jonny Attestation: I was immediately available in the department for consultation. Documentation has been reviewed. I agree with assessment and plan.
[2020-06-14 11:18] VITALS: BP 133/65; PULSE 61; RESP 15; O2SAT 100
== END 2020-06-14 11:35 | disposition home or self-care (01) ==
PROVIDERS: Emergency Provider Nurse Practitioner Family; PCP Internal Medicine
DX: I82.402 Acute embolism and thrombosis of unspecified deep veins of left lower extremity (principal); I48.91 Unspecified atrial fibrillation; Z79.01 Long term (current) use of anticoagulants; I10 Essential (primary) hypertension; E78.5 Hyperlipidemia, unspecified
CPT/HCPCS: 36415; 93971; 99283; 99284

== ENCOUNTER 2020-10-13 11:02 | Emergency (ER) | payer MEDICARE, BC, SELFPAY ==
[2020-10-13] VITALS (10 sets, daily range): BP systolic 125–156; BP diastolic 63–70; PULSE 67–76; RESP 14–24; TEMP 37.2–37.9; O2SAT 96–97; BMI 20.9
--- NOTE | 2020-10-13 11:11 | ED_ITS ---
HPI - General Adult General Chief complaint: Extremity Injury, Lower Stated complaint: covid+, high fever, weakness Time Seen by Provider: 10/13/20 11:11 History of Present Illness HPI narrative: 75-year-old gentleman with a history of atrial fibrillation, DVT, hypertension hyperlipidemia who is anticoagulated on Coumadin and recently helping his recuperate through her episode of COVID, presents with right ankle pain. He states he was standing yesterday his right ankle simply gave out and he fell putting majority of his body weight on the right ankle. It is a bit swollen today with some swelling through the right calf significantly tender knees having difficulty bearing any weight. His was diagnosed with COVID, has currently been 10 days without symptoms he began having cough, low-grade fevers and general malaise over the last 4 days and is presumed to have COVID and has been quarantining at home. Because of his 's COVID diagnosis and his presumed COVID diagnosis he has not had an INR level done recently and requests that this be done as well. He describes low-grade fevers, nonproductive cough, mild GI upset, mild diarrhea, low-grade headaches, no orthopnea or specific dyspnea no chest pain or palpitations. Related Data Home Medications Medication Instructions Recorded Confirmed losartan 50 mg-hydrochlorothiazide 1 tab PO DAILY 01/22/18 04/26/20 12.5 mg tablet pravastatin 20 mg tablet 20 mg PO DAILY 01/22/18 04/26/20 warfarin 5 mg PO SUMOWETHSA 02/03/18 04/26/20 warfarin See Rx Instructions .ROUTE .COMPLEX 02/13/19 04/26/20 Allergies Allergy/AdvReac Type Severity Reaction Status Date / Time cephalexin [CEPHALEXIN] Allergy Unknown Burning & Verified 06/14/20 09:31 nausea erythromycin base Allergy Unknown Diarrhea, Verified 06/14/20 09:31 [ERYTHROMYCIN BASE] burning, nausea latex Allergy Unknown Skin Verified 06/14/20 09:31 peels off morphine Allergy Unknown Body rash, Verified 06/14/20 09:31 Itching oxycodone Allergy Hives Verified 06/14/20 09:31 Penicillins Allergy Rash Verified 06/14/20 09:31 Review of Systems Review of Systems Narrative: Remainder of complete review of systems is otherwise unremarkable except for that included in the HPI. Patient History Medical History (Updated 10/13/20 @ 13:07 by Sheila Blevins MD) Chronic anticoagulation Elevated cholesterol Esophageal cancer (~2000) Essential hypertension with goal blood pressure less than 130/85 History of DVT of lower extremity History of headache History of pneumonia History of sarcoma Impotence Left inguinal hernia Surgical History History of bowel resection History of resection of stomach History of right inguinal hernia repair History of right inguinal hernia repair History of shoulder surgery History of vasectomy History of ventral hernia repair Status post repair of recurrent ventral hernia Social History household members: spouse Smoking Status: Never smoker alcohol intake: former Smoking Status: Never smoker alcohol intake frequency: holidays/special occasions only Substance Use Type: does not use Exam Narrative Exam Narrative: General: Healthy appearing, in no acute distress. Able to give a complete and coherent history. Well-nourished well-developed HEENT: Moist mucous membranes, normal sclera with reactive pupils, Respiratory: Lungs are clear to auscultation, no wheezing no rales no rhonchi. Full and symmetrical air movement Cardiac: Regular rate and rhythm no murmurs no bruits Abdomen: Soft, nontender, good bowel tones, no flank pain Skin: Warm and dry, no rashes Neurologic: Grossly neurologically intact with no obvious asymmetries or abnormalities Extremities: Right ankle is edematous without hematoma. He is tender on both malleoli and does have fullness from the midfoot to the proximal calf. Psych: Cooperative, appropriate insight and affect Initial Vital Signs Initial Vital Signs: Vital Signs Pulse Rate 76 10/13/20 11:22 Pulse Oximetry 97 10/13/20 11:22 Procedures Orthopedic Splinting/Casting Right distal fibular fracture: Side: right Lower Extremity Injury Location: ankle Lower Extremity Immobilizer: posterior splint Other Orthopedic Equipment: crutches Post splinting neuro exam: intact Post splinting vascular exam: intact Placed by: Nursing Course Orders Ordered: ED Orders 10/13/20 11:20 COVID19 -Nasal swab/Pre-Proc Stat 10/13/20 11:24 XR ankle RT min 3V Stat 10/13/20 11:51 Prothrombin Time INR Stat Discontinued Medications Acetaminophen (Acetaminophen 325 Mg Tablet) 975 mg PO NOW ONE Stop: 10/13/20 11:25 Last Admin: 10/13/20 12:02 Dose: 975 mg Documented by: SANJEEV Vital Signs Vital signs: Vital Signs - 8 hr 10/13/20 11:22 10/13/20 11:30 10/13/20 11:56 Temperature Pulse Rate 76 69 74 Pulse Rate [Right Dorsalis Pedis] Respiratory Rate 16 Blood Pressure 141/67 H 141/67 H Pulse Oximetry 97 96 97 10/13/20 12:00 10/13/20 12:01 10/13/20 12:08 Temperature 100.3 F H Pulse Rate 68 Pulse Rate [Right Dorsalis Pedis] 67 Respiratory Rate 14 Blood Pressure 156/70 H Pulse Oximetry 97 10/13/20 12:30 10/13/20 13:00 10/13/20 13:07 Temperature 99.0 F Pulse Rate 70 71 Pulse Rate [Right Dorsalis Pedis] Respiratory Rate 19 20 Blood Pressure 125/63 135/67 Pulse Oximetry 96 96 Medical Decision Making Lab Data Lab results reviewed: Yes I reviewed the patient's lab results. Labs: Lab Results 10/13/20 10/13/20 Range/Units 11:20 11:51 PT 20.6 H (10.1-12.7) SECONDS INR 1.8 H (0.9-1.3) SARS-CoV-2 (PCR) Positive H (Negative) Imaging Data X-ray ankle: Radiologist's Impression: FINDINGS: Bones: There is a minimally displaced, comminuted distal fibular fracture. Tibiotalar joint space is well maintained. Soft tissues: Lateral malleolar edema is present.. Achilles tendon appears normal. IMPRESSION: Comminuted distal fibular fracture with minimal displacement. Dictated by: Katja Oliveira M.D. on 10/13/2020 at 10:44 MDM Narrative Medical decision making narrative: 75-year-old gentleman with at least 4 days of COVID symptoms and he is COVID positive. He is not hypoxic and not needing admission for this, incidentally noted. With his fall on his ankle yesterday he has suffered a distal comminuted fibular fracture minimally displaced. He is placed in a posterior splint. Have instructed him to follow-up with [facility] and let them know that he did test positive for COVID today. This splint that is in place currently gurpreet uld be adequate until he is asymptomatic for 10 days and able to safely get into the outpatient orthopedic clinic for definitive care and casting. He will be given crutches. And encouraged him to return if he has worsening symptoms. INR today was 1.8. Will ask him to call his primary care physician's office to share this information and asked for recommendations on warfarin management. Discharge Plan Departure Patient Disposition: Home Clinical Impression: COVID-19 Closed fibular fracture Qualifiers: Encounter type: initial encounter Fibula location: distal Fracture morphology: torus Laterality: right Qualified Code(s): S82.821A - Torus fracture of lower end of right fibula, initial encounter for closed fracture Instructions: How to Use Crutches, DI for Ankle Fracture, DI for COVID-19 (Suspected or Confirmed ) Activity Restrictions/Additional Instructions: Thank you for coming in today Your INR is 1.8, please contact Dr. Peter office for further management of your warfarin You are positive for COVID. Fortunately your vital signs are very reassuring and there is no reason for hospital admission. If you find that you are getting worse or more short of breath, feel free to return to the emergency department for further evaluation You did in fact break your right ankle. Fortunately it is the smaller bone on the outside of the ankle which is a relatively stable fracture. I have placed to in a splint and we will send you home with crutches. You will need to follow-up with [facility] for definitive care and treatment including casting. Please call them to schedule an appointment and let them know that you did test positive for COVID and that you do have a splint that was placed in the emergency department. Waiting an extra week will be safe before you schedule an appointment to see them. It is okay to use Tylenol for the next 1-2 weeks to help with pain control . I hope you heal quickly Prescriptions: No Action losartan-hydrochlorothiazide 50-12.5 mg tablet 1 tab PO DAILY RF: 0 pravastatin 20 mg tablet 20 mg PO DAILY RF: 0 warfarin 5 mg Tablet 5 mg PO SUMOWETHSA RF: 0 warfarin 5 mg tablet See Rx Instructions .ROUTE .COMPLEX RF: 0 Referrals: Ori Peter MD [Primary Care Provider] - Mo Good MD [Physician] -
--- NOTE | 2020-10-13 11:24 | DI.RAD.S_ITS ---
PROCEDURE: XR ANKLE RT MIN 3V INDICATIONS: fall, swelling, unable to bear weight TECHNIQUE: 3 views of the ankle were acquired. COMPARISON: None. FINDINGS: Bones: There is a minimally displaced, comminuted distal fibular fracture. Tibiotalar joint space is well maintained. Soft tissues: Lateral malleolar edema is present.. Achilles tendon appears normal. IMPRESSION: Comminuted distal fibular fracture with minimal displacement. Dictated by: Katja Oliveira M.D. on 10/13/2020 at 10:44 Approved by: Katja Oliveira M.D. on 10/13/2020 at 10:46
--- NOTE | 2020-10-13 11:58 | PC.NURSE ---
patient and his are covid positive. The patient is not here for covid symptoms. He's here because he fell yesterday on his right ankle. He heard a pop and felt something that made him worried about it. He did not take any medication for 8/10 pain
[2020-10-13] MEDS: ACETAMINOPHEN 325 MG TABLET 975 MG PO (12:02)
[2020-10-13 12:05] LABS: COVID19 -Nasal RAPID POSITIVE (Negative)
[2020-10-13 12:09] LABS: INR 1.8 (0.9-1.3); Prothrombin Time 20.6 SECONDS (10.1-12.7)
== END 2020-10-13 13:27 | disposition home or self-care (01) ==
PROVIDERS: Emergency Provider Emergency Medicine; PCP Internal Medicine
DX: U07.1 COVID-19 (principal); S82.821A Torus fracture of lower end of right fibula, initial encounter for closed fracture; W19.XXXA Unspecified fall, initial encounter; Z79.01 Long term (current) use of anticoagulants
CPT/HCPCS: 73610; 85610; 87635; 99283; C9803

== ENCOUNTER → 2020-10-24 13:29 | Outpatient (CLI) | payer MEDICARE, BC, SELFPAY ==
[2020-10-24 15:13] LABS: COVID19 -Nasal RAPID POSITIVE (Negative)
== END ==
PROVIDERS: PCP Internal Medicine; Visit Provider Student in an Organized Health Care Education/Training Program
DX: Z20.822 Contact with and (suspected) exposure to COVID-19
CPT/HCPCS: 87635; C9803

== ENCOUNTER → 2020-11-09 09:29 | Outpatient (CLI) | payer MEDICARE, BC, SELFPAY ==
[2020-11-09 10:31] LABS: COVID19 -Nasal RAPID Negative (Negative)
== END ==
PROVIDERS: PCP Internal Medicine; Referring Provider Internal Medicine; Visit Provider Internal Medicine
DX: Z20.822 Contact with and (suspected) exposure to COVID-19 (principal)
CPT/HCPCS: 87635; C9803

== ENCOUNTER → 2021-11-15 09:41 | Outpatient (CLI) | payer MEDICARE, BC, SELFPAY ==
[2021-11-15 10:50] LABS: Hematocrit 42.1 % (41-53); Hemoglobin 14.9 g/dL (13.5-17.5); Mean Corpuscular HGB Conc 35.3 % (30-36); Mean Corpuscular Volume 90.9 fL (80-100); Platelet Count 185 X10^3/uL (150-400); Red Blood Cell Count 4.64 X10^6/uL (4.5-5.9); Red Cell Distribution Width 13.6 % (11.6-14.8); White Blood Cell Count 4.7 X10^3/uL (4.5-11.0)
[2021-11-15 11:23] LABS: Alanine Aminotransferase 22 IU/L (<50); Albumin 4.5 g/dL (3.5-5.0); Albumin Globulin Ratio 1.2 (1.0-2.8); Alkaline Phosphatase 104 U/L (38-126); Aspartate Aminotransferase 37 IU/L (17-59); BUN Creatinine Ratio 18.6 (6-22); Bilirubin Total 0.7 mg/dL (0.2-1.3); Blood Urea Nitrogen 16 mg/dL (9-20); Calcium 8.9 mg/dL (8.4-10.2); Carbon Dioxide 27 mmol/L (22-32); Chloride 102 mmol/L (98-107); Cholesterol 123 mg/dL (140-199); Estimated Glomerular Filt Rate > 60 mL/min (>60); Globulin 3.8 g/dL (1.7-4.1); Glucose 98 mg/dL (80-110); HDL Cholesterol 38 mg/dL (40-60); HEMOLYSIS < 15 (0-50); LDL Cholesterol Calculated 75 mg/dL (<100); Potassium 3.9 mmol/L (3.4-5.1); Sodium 136 mmol/L (137-145); Total Protein 8.3 g/dL (6.3-8.2); Triglycerides 48 mg/dL (35-150)
[2021-11-15 11:50] LABS: TSH w/ Reflex to FT4 2.92 uIU/mL (0.47-4.68)
[2021-11-15 11:53] LABS: Prostate Specific Antigen 0.748 ng/mL (0.10-4.00)
== END ==
PROVIDERS: PCP Internal Medicine; Referring Provider Internal Medicine; Visit Provider Internal Medicine
DX: Z79.01 Long term (current) use of anticoagulants (principal); Z86.718 Personal history of other venous thrombosis and embolism; Z12.5 Encounter for screening for malignant neoplasm of prostate
CPT/HCPCS: 36415; 80053; 80061; 84153; 84443; 85027; G0103

== ENCOUNTER → 2022-05-21 10:35 | Outpatient (CLI) | payer MEDICARE, BC, SELFPAY ==
[2022-05-21 14:08] LABS: Appearance Urine UA SL CLOUDY; Bilirubin Urine UA NEGATIVE (NEGATIVE); Color Urine UA YELLOW; Glucose Urine UA NEGATIVE (Negative); Ketones Urine UA NEGATIVE (NEGATIVE); Leukocyte Esterase Urine UA 3+ (NEGATIVE); Nitrite Urine UA POSITIVE (Negative); Occult Blood Urine UA 2+ (Negative); Protein Urine UA TRACE (Negative); Specific Gravity Urine UA 1.015 (1.000-1.035); Urobilinogen Urine UA 0.2 E.U./dL (0.2)
[2022-05-21 14:51] LABS: Bacteria Urine Many (>30); Culture Indicated Urine Specimen Cultured; RBC Urine 1-5/HPF (0-5/HPF); WBC Urine 10-30/HPF (0-5/HPF)
== END ==
PROVIDERS: PCP Internal Medicine; Referring Provider Internal Medicine; Visit Provider Internal Medicine
DX: N39.0 Urinary tract infection, site not specified (principal); R30.0 Dysuria
CPT/HCPCS: 81001; 87077; 87086; 87186

== ENCOUNTER → 2022-05-31 10:54 | Outpatient (CLI) | payer MEDICARE, BC, SELFPAY ==
[2022-05-31 12:23] LABS: Hematocrit 40.2 % (41-53); Hemoglobin 13.9 g/dL (13.5-17.5); Mean Corpuscular HGB Conc 34.5 % (30-36); Mean Corpuscular Hemoglobin 31.1 PG (26-34); Mean Corpuscular Volume 90.2 fL (80-100); Platelet Count 218 X10^3/uL (150-400); Red Blood Cell Count 4.45 X10^6/uL (4.5-5.9); Red Cell Distribution Width 13.1 % (11.6-14.8); White Blood Cell Count 4.2 X10^3/uL (4.5-11.0)
[2022-05-31 12:49] LABS: INR 2.8 (0.9-1.3); Prothrombin Time 32.4 SECONDS (10.1-12.7)
[2022-05-31 13:09] LABS: Alanine Aminotransferase 23 IU/L (<50); Albumin 4.1 g/dL (3.5-5.0); Albumin Globulin Ratio 1.1 (1.0-2.8); Alkaline Phosphatase 93 U/L (38-126); Aspartate Aminotransferase 39 IU/L (17-59); Bilirubin Total 0.6 mg/dL (0.2-1.3); Blood Urea Nitrogen 13 mg/dL (9-20); Calcium 8.9 mg/dL (8.4-10.2); Carbon Dioxide 26 mmol/L (22-32); Chloride 98 mmol/L (98-107); Estimated Glomerular Filt Rate > 60 mL/min (>60); Globulin 3.8 g/dL (1.7-4.1); Glucose 94 mg/dL (80-110); HEMOLYSIS 30 (0-50); Sodium 134 mmol/L (137-145); Total Protein 7.9 g/dL (6.3-8.2)
== END ==
PROVIDERS: PCP Internal Medicine; Referring Provider Internal Medicine; Visit Provider Internal Medicine
DX: I10 Essential (primary) hypertension (principal); Z86.718 Personal history of other venous thrombosis and embolism
CPT/HCPCS: 36415; 80053; 85027; 85610

== ENCOUNTER → 2022-06-01 13:40 | Outpatient (CLI) | payer MEDICARE, BC, SELFPAY ==
[2022-06-05 17:11] LABS: Fecal Immunochemical Test Negative (Negative)
== END ==
PROVIDERS: PCP Internal Medicine; Referring Provider Internal Medicine; Visit Provider Internal Medicine
DX: Z12.11 Encounter for screening for malignant neoplasm of colon (principal)
CPT/HCPCS: 82274

== ENCOUNTER → 2022-10-24 11:56 | Outpatient (CLI) | payer MEDICARE, BC, SELFPAY ==
[2022-10-24 13:00] LABS: Hematocrit 39.9 % (41-53); Hemoglobin 13.8 g/dL (13.5-17.5); Mean Corpuscular HGB Conc 34.5 % (30-36); Mean Corpuscular Hemoglobin 31.6 PG (26-34); Mean Corpuscular Volume 91.5 fL (80-100); Platelet Count 168 X10^3/uL (150-400); Red Blood Cell Count 4.36 X10^6/uL (4.5-5.9); Red Cell Distribution Width 13.1 % (11.6-14.8); White Blood Cell Count 3.9 X10^3/uL (4.5-11.0)
[2022-10-24 13:55] LABS: TSH w/ Reflex to FT4 2.34 uIU/mL (0.47-4.68)
[2022-10-24 14:12] LABS: Alanine Aminotransferase 28 IU/L (<50); Albumin 3.9 g/dL (3.5-5.0); Albumin Globulin Ratio 1.1 (1.0-2.8); Alkaline Phosphatase 98 U/L (38-126); Aspartate Aminotransferase 39 IU/L (17-59); BUN Creatinine Ratio 20.9 (6-22); Bilirubin Total 0.6 mg/dL (0.2-1.3); Blood Urea Nitrogen 14 mg/dL (9-20); Calcium 8.8 mg/dL (8.4-10.2); Carbon Dioxide 29 mmol/L (22-32); Chloride 103 mmol/L (98-107); Cholesterol 113 mg/dL (140-199); Estimated Glomerular Filt Rate > 60 mL/min (>60); Globulin 3.6 g/dL (1.7-4.1); Glucose 91 mg/dL (80-110); HDL Cholesterol 28 mg/dL (40-60); HEMOLYSIS < 15 (0-50); LDL Cholesterol Calculated 68 mg/dL (<100); Potassium 4.4 mmol/L (3.4-5.1); Sodium 137 mmol/L (137-145); Total Protein 7.5 g/dL (6.3-8.2); Triglycerides 85 mg/dL (35-150)
[2022-10-24 14:42] LABS: Prostate Specific Antigen 0.772 ng/mL (0.10-4.00)
== END ==
PROVIDERS: PCP Internal Medicine; Referring Provider Internal Medicine; Visit Provider Internal Medicine
DX: E78.2 Mixed hyperlipidemia (principal); N40.0 Benign prostatic hyperplasia without lower urinary tract symptoms; I10 Essential (primary) hypertension; K59.01 Slow transit constipation; Z85.831 Personal history of malignant neoplasm of soft tissue; Z86.718 Personal history of other venous thrombosis and embolism
CPT/HCPCS: 36415; 80053; 80061; 84153; 84443; 85027

== ENCOUNTER → 2023-06-19 16:32 | Outpatient (CLI) | payer MEDICARE, BC, SELFPAY | PROVIDERS: PCP Internal Medicine; Visit Provider Nurse Practitioner Family | DX: R30.0 Dysuria (principal) | CPT/HCPCS: 87086 ==

== ENCOUNTER 2023-07-08 14:07 | Day surgery (SDC) | payer MEDICARE, BC, SELFPAY ==
--- NOTE | 2023-07-08 | PATH_ITS ---
[facility] Accession Number: [id number] No. of containers..01 Tissue . 01 Material submitted: . colon - CECAL POLYP . 01 Diagnosis: Colon, cecum, polyp biopsy: Fragments of tubulovillous adenoma. Additionally fragments of benign colonic mucosa with benign reactive lymphoid aggregates are seen. Negative for high grade dysplasia despite multiple levels assessment. TXN 07/11/2023 0955 Local . 01 Electronically signed: . Paige Islas MD, Pathologist NPI- [id number] . 01 Gross description: . CECAL POLYP: Received in formalin is multiple fragment(s) of sarkar, soft tissue measuring 3.0 x 2.5 x 0.4 cm in aggregate submitted entirely in 1 cassette(s) /AAY 07/09/2023 0257 Local . 01 Pathologist provided ICD-10: Z12.11 . 01 CPT . 857945 Specimen Comment: A courtesy copy of this report has been sent to [phone] Performed at: 01 [facility] [address] [place] [address], [place], [place] [id number] MD Del Kasper MD Phone: [phone]
[2023-07-08 14:55] VITALS: BP 161/80; PULSE 81; RESP 18; TEMP 36.6; O2SAT 100
[2023-07-08] MEDS: LACTATED RINGERS 1,000 ML 42 ML IV (15:04)
--- NOTE | 2023-07-08 15:13 | PM.PREOP ---
Pre-operative Note COVID-19 COVID-19 status: Not tested Interval Note History & Physical reviewed/Exam performed by Physician: Yes Changes to H&P: No ASA Class (for procedural sedation): III
--- NOTE | 2023-07-08 16:16 | PM.OP.COLON ---
Operative Date/Time/Diagnoses Date of procedure: 07/08/23 Time of procedure: 16:16 Pre-op diagnosis: Change in bowel habits Post-op diagnosis: same Procedure & Clinicians Study performed: Colonoscopy Same procedure as scheduled: Yes Surgeon: Celestino Samuels Procedure Notes Procedure in detail: Surgeon: Celestino Samuels MD Anesthesia: Debbi Juan CRNA Procedure: The patient was brought to the endoscopy suite, placed in left lateral decubitus position. The patient was connected to monitoring devices. A time-out was performed. Sedation was administered. Once the patient was adequately sedated, a digital rectal exam was performed and was normal. The scope was then inserted and advanced to the cecum where the appendiceal orifice was identified and photographed. The scope was then slowly withdrawn over greater than 6 minutes. The mucosa was thoroughly inspected. There was a large flat polyp in the cecum. It was roughly 2 cm across. Endoscopic mucosal resection was performed. Roughly 1 cc saline was injected to raise portion of the polyp. The polyp was then removed piecemeal using the 20 mm and 10 mm hot snares. The mucosal defect was then clipped closed. An additional 5 mm polyp was removed with a hot snare in the cecum. All of the tissue was sent together as cecal polyp. The rest of the colon was normal. The scope was retroflexed in the rectum. No other abnormalities were seen. The scope was straightened and removed. The patient was awakened and brought to recovery. Scope withdrawal time: 36 minutes Sedation time: 44 minutes EBL: 5 mL Findings: 2 cm cecal polyp and 5 mm cecal polyp Post-procedure Disposition: PACU
[2023-07-08 16:17] VITALS: BP 116/65; BP 121/61; PULSE 65; PULSE 80; RESP 12; RESP 14; TEMP 36.6; O2SAT 98
[2023-07-08 16:28] VITALS: BP 142/66; PULSE 75; RESP 16; O2SAT 97
[2023-07-08 16:32] VITALS: BP 135/89; PULSE 64; RESP 12; O2SAT 96
== END 2023-07-08 16:47 | disposition home or self-care (01) ==
PROVIDERS: PCP Internal Medicine; Referring Provider Surgery; Visit Provider Surgery
PROC: 0DJD8ZZ Inspection of Lower Intestinal Tract, Via Natural or Artificial Opening Endoscopic (ICD-10-PCS; CPT 45378; principal; 2023-07-08 15:15)
DX: R19.4 Change in bowel habit (principal); D12.0 Benign neoplasm of cecum
CPT/HCPCS: 45390; 45385; J2704

== ENCOUNTER → 2023-12-11 08:45 | Outpatient (CLI) | payer MEDICARE, BC, SELFPAY ==
[2023-12-11 09:38] LABS: Hematocrit 41.1 % (41-53); Hemoglobin 14.3 g/dL (13.5-17.5); Mean Corpuscular HGB Conc 34.9 % (30-36); Mean Corpuscular Hemoglobin 31.4 PG (26-34); Mean Corpuscular Volume 89.9 fL (80-100); Platelet Count 191 X10^3/uL (150-400); Red Blood Cell Count 4.57 X10^6/uL (4.5-5.9); Red Cell Distribution Width 13.4 % (11.6-14.8); White Blood Cell Count 4.4 X10^3/uL (4.5-11.0)
[2023-12-11 09:56] LABS: Alanine Aminotransferase 24 IU/L (<50); Albumin 4.5 g/dL (3.5-5.0); Albumin Globulin Ratio 1.2 (1.0-2.8); Alkaline Phosphatase 111 U/L (38-126); Aspartate Aminotransferase 40 IU/L (17-59); BUN Creatinine Ratio 15.9 (6-22); Blood Urea Nitrogen 13 mg/dL (9-20); Carbon Dioxide 25 mmol/L (22-32); Chloride 101 mmol/L (98-107); Cholesterol 129 mg/dL (140-199); Estimated Glomerular Filt Rate > 60 mL/min (>60); Globulin 3.9 g/dL (1.7-4.1); Glucose 93 mg/dL (80-110); HDL Cholesterol 41 mg/dL (40-60); HEMOLYSIS < 15 (0-50); LDL Cholesterol Calculated 76 mg/dL (<100); Potassium 3.6 mmol/L (3.4-5.1); Sodium 134 mmol/L (137-145); Total Protein 8.4 g/dL (6.3-8.2); Triglycerides 62 mg/dL (35-150)
[2023-12-11 10:24] LABS: Prostate Specific Antigen 0.809 ng/mL (0.10-4.00)
== END ==
PROVIDERS: PCP Internal Medicine; Referring Provider Internal Medicine; Visit Provider Internal Medicine
DX: N40.1 Benign prostatic hyperplasia with lower urinary tract symptoms (principal); N13.8 Other obstructive and reflux uropathy; E78.2 Mixed hyperlipidemia; R19.00 Intra-abdominal and pelvic swelling, mass and lump, unspecified site
CPT/HCPCS: 36415; 80053; 80061; 84153; 85027

== ENCOUNTER → 2023-12-11 10:23 | Outpatient (CLI) | payer MEDICARE, BC, SELFPAY ==
--- NOTE | 2023-12-11 10:24 | DI.CT.S_ITS ---
PROCEDURE: CT ABDOMEN PELVIS W CON INDICATIONS: abdominal mass TECHNIQUE: After the administration of intravenous contrast, axial sections acquired from the lung bases to the pubic symphysis. Coronal and sagittal reformats were performed. For radiation dose reduction, the following was used: automated exposure control, adjustment of mA and/or kV according to patient size. COMPARISON: None. FINDINGS: Image quality: Diagnostic. Lower Chest: Lung bases are clear. Small-moderate hiatal hernia. ABDOMEN: Liver: No solid mass. There is diffuse hypoattenuation of the liver parenchyma relative to the spleen compatible with hepatic steatosis. Gallbladder: No radiopaque gallstones or wall thickening. Biliary ducts: No biliary dilation. Pancreas: No ductal dilation. Spleen: Size is within normal limits. Adrenal Glands: No adrenal nodules. Kidneys and Ureters: No hydronephrosis. No solid mass. No complex renal cystic lesion which requires follow up. Stomach and Bowel: Normal colonic caliber, without significant wall thickening. Scattered colonic diverticula without acute inflammation. Peritoneum: No abnormal intraperitoneal fluid. No free air. Ventral Wall: Postsurgical changes of the ventral abdominal wall with focal fluid collection abutting the anterior right abdominal wall peritoneal surface measuring 5.5 x 2.9 cm in axial cross-sectional dimension (34/series 2) and approximately 7.7 cm in craniocaudal dimension (42/series 4). No internal gas. No adjacent inflammation. No significant wall thickening. Abdominal Nodes: No retroperitoneal or mesenteric adenopathy by size criteria. Vessels: Aorta and inferior vena cava are normal in size. PELVIS: Pelvic Organs: Unremarkable. Bladder: No bladder wall thickening, accounting for underdistention. Pelvic Nodes: No enlarged lymph nodes. Miscellaneous: No inguinal hernias are seen. Findings consistent with prior bilateral vasectomies. Bones: No aggressive osseous abnormality. No acute vertebral body compression fractures. Multilevel spondylitic changes throughout the imaged spine. No suspicious osseous lesions. IMPRESSION: There is a 5.5 x 2.9 x 7.7 cm fluid collection noted over the right anterior abdominal wall in close proximity to previous surgical changes likely related to a postsurgical seroma. No acute inflammatory changes noted in the region. Recommend clinical correlation . Otherwise, no acute abnormalities identified in the abdomen or pelvis. Small-moderate sized hiatal hernia. Hepatic steatosis. Colonic diverticulosis without acute diverticulitis. Other chronic findings as above. Dictated by: Dell Moon M.D. on 12/11/2023 at 16:13 Approved by: Dell Moon M.D. on 12/11/2023 at 16:20
== END ==
PROVIDERS: PCP Internal Medicine; Referring Provider Internal Medicine; Visit Provider Internal Medicine
DX: R19.00 Intra-abdominal and pelvic swelling, mass and lump, unspecified site (principal); K44.9 Diaphragmatic hernia without obstruction or gangrene; K76.0 Fatty (change of) liver, not elsewhere classified; K57.90 Diverticulosis of intestine, part unspecified, without perforation or abscess without bleeding; N40.1 Benign prostatic hyperplasia with lower urinary tract symptoms; N13.8 Other obstructive and reflux uropathy; E78.2 Mixed hyperlipidemia
CPT/HCPCS: 36415; 74177; 80053; 80061; 84153; 85027; Q9967

== ENCOUNTER 2024-07-09 06:37 | Day surgery (SDC) | payer MEDICARE, BC, SELFPAY ==
--- NOTE | 2024-07-09 | PATH_ITS ---
[facility] Accession Number: [id number] No. of containers..01 Tissue . 01 Material submitted: . colon - ASCENDING COLON POLYP . 01 Diagnosis: ASCENDING COLON POLYP: Colonic mucosa with prominent benign lymphoid aggregate. Negative for serrated lesion, dysplasia, or malignancy. [facility] 07/13/2024 1041 Local . 01 Electronically signed: . Lg Calderon MD, PhD, Pathologist NPI- [id number] . 01 Gross description: . Received in formalin with two patient identifiers and ascending polyp, is a single sarkar soft tissue fragment, 0.5 cm in greatest dimension, submitted in A1. ([id number]) /MRV 07/10/2024 1730 Local . 01 Pathologist provided ICD-10: K63.5 . 01 CPT . 211896 Specimen Comment: A courtesy copy of this report has been sent to [phone] Performed at: [address] [facility] [address], [place], [place] [id number] MD Del Kasper MD Phone: [phone]
[2024-07-09 07:06] VITALS: BP 148/71; PULSE 82; RESP 16; TEMP 36.6; O2SAT 100
[2024-07-09] MEDS: SODIUM CHLORIDE 0.9% 1,000 ML 150 ML IV (07:10)
--- NOTE | 2024-07-09 07:30 | PM.HP.IH.1 ---
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 He is back for his one year follow up colonoscopy. 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 Recurrent sinusitis Scoliosis (~2016) Slow transit constipation Surgical History History of bowel resection History of resection of stomach History of right inguinal hernia repair History of right inguinal hernia repair History of shoulder surgery History of vasectomy History of ventral hernia repair Status post repair of recurrent ventral hernia Family History Father Cancer Mother History of heart disease Brother Cancer Brother Cancer Sister COPD (chronic obstructive pulmonary disease) Sister Dementia Alzheimer's disease Grandmother Brain tumor Grandmother Diabetes mellitus Family/Other Autoimmune disease Osteoporosis Lupus Rheumatoid arthritis Fibromyalgia Social History household members: spouse Smoking Status: Never smoker alcohol intake: former Meds Home Medications and Allergies Home Medications Medication Instructions Recorded Confirmed Type hydrocortisone 2.5 % topical cream 1 applic topical BID 11/15/21 06/25/24 History pravastatin 20 mg tablet 20 mg PO DAILY #90 tabs 06/03/23 06/25/24 Rx triamcinolone acetonide 0.1 % 1 applic topical DAILY PRN rash 06/03/23 06/25/24 Rx topical cream #30 grams warfarin 5 mg tablet See Rx Instructions .Route 06/03/23 07/09/24 Rx .COMPLEX #72 tabs losartan 50 mg-hydrochlorothiazide 1 tab PO DAILY 07/08/23 06/25/24 History 12.5 mg tablet (Hyzaar) peg 3350-electrolytes 236 240 ml PO Q10M #4,000 mL 05/28/24 06/25/24 Rx gram-22.74 gram-6.74 gram-5.86 gram solution (Golytely) Allergies Allergy/AdvReac Type Severity Reaction Status Date / Time cephalexin [CEPHALEXIN] Allergy Unknown Burning & Verified 06/25/24 08:28 nausea erythromycin base Allergy Unknown Diarrhea, Verified 06/25/24 08:28 [ERYTHROMYCIN BASE] burning, nausea latex Allergy Unknown Skin Verified 06/25/24 08:28 peels off morphine Allergy Unknown Body rash, Verified 06/25/24 08:28 Itching oxycodone Allergy Hives Verified 06/25/24 08:28 Penicillins Allergy Rash Verified 06/25/24 08:28 influenza virus vaccine AdvReac Intermediate sick Verified 06/25/24 08:28 trivalent Exam Vital Signs (past 8 hours): - 07/09/24 07:06 Temperature 97.9 F Pulse Rate 82 Respiratory Rate 16 Blood Pressure 148/71 H Pulse Oximetry 100 Oxygen Delivery Method Room Air Oxygen Delivery Method Room Air Const General: healthy appearing Resp Effort & Inspection: normal respiratory effort Assessment & Plan Assessment and plan (1) History of colonic polyps: Status: Acute Plan We reviewed the risks and benefits of colonoscopy for a history of a large tubulovillous adenoma that was removed piecemeal. He would like to proceed. Time-Based Coding :: [TOTAL MINUTES] spent with patient and on the chart (including review of chart, obtaining history, exam, reviewing outside data, placing orders, documenting exam and treatment plan, and counseling patient) on [DATE]. [employer] Medicine Teacher Document charge(s): No
[2024-07-09 08:15] VITALS: BP 127/59; PULSE 69; RESP 16; TEMP 36.3; O2SAT 100
--- NOTE | 2024-07-09 08:16 | PM.OP.COLON ---
Operative Date/Time/Diagnoses Date of procedure: 07/09/24 Time of procedure: 08:16 Pre-op diagnosis: History of tubulovillous adenoma Post-op diagnosis: same Procedure & Clinicians Study performed: Colonoscopy Same procedure as scheduled: Yes Surgeon: Celestino Samuels Procedure Notes Procedure in detail: Surgeon: Celestino Samuels MD Anesthesia: Princess Lizama MD Procedure: The patient was brought to the endoscopy suite, placed in left lateral decubitus position. The patient was connected to monitoring devices. A time-out was performed. Sedation was administered. Once the patient was adequately sedated, a digital rectal exam was performed and was normal. The scope was then inserted and advanced to the cecum where the appendiceal orifice was identified and photographed. The scope was then slowly withdrawn over greater than 6 minutes. The mucosa was thoroughly inspected. There were 2 small polyps in the ascending colon and each was removed separately with cold snare and sent together. The scope was retroflexed in the rectum. No other abnormalities were found. The scope was straightened and removed. The patient was awakened and brought to recovery. Scope withdrawal time: 9 minutes Sedation time: 18 minutes EBL: 5 mL Findings: 2 small polyps in the ascending colon Post-procedure Disposition: PACU
[2024-07-09 08:20] VITALS: BP 133/67; PULSE 66; RESP 16; O2SAT 98
[2024-07-09 08:25] VITALS: BP 130/70; PULSE 100; RESP 16; TEMP 36.2; O2SAT 98
== END 2024-07-09 08:45 | disposition home or self-care (01) ==
PROVIDERS: PCP Internal Medicine; Referring Provider Surgery; Visit Provider Surgery
PROC: 0DJD8ZZ Inspection of Lower Intestinal Tract, Via Natural or Artificial Opening Endoscopic (ICD-10-PCS; CPT 45378; principal; 2024-07-09 07:45)
DX: Z12.11 Encounter for screening for malignant neoplasm of colon (principal); K63.5 Polyp of colon; Z86.0101 Personal history of adenomatous and serrated colon polyps; I10 Essential (primary) hypertension; Z79.01 Long term (current) use of anticoagulants; Z86.718 Personal history of other venous thrombosis and embolism
CPT/HCPCS: 45385; J2704

== ENCOUNTER → 2024-12-28 10:03 | Outpatient (CLI) | payer MEDICARE, BC, SELFPAY ==
[2024-12-28 11:40] LABS: Hematocrit 40.2 % (41-53); Hemoglobin 14.0 g/dL (13.5-17.5); Mean Corpuscular HGB Conc 34.8 % (30-36); Mean Corpuscular Hemoglobin 31.7 PG (26-34); Mean Corpuscular Volume 90.9 fL (80-100); Platelet Count 156 X10^3/uL (150-400)
[2024-12-28 12:09] LABS: Alanine Aminotransferase 25 IU/L (<50); Albumin 4.5 g/dL (3.5-5.0); Albumin Globulin Ratio 1.2 (1.0-2.8); Alkaline Phosphatase 98 U/L (38-126); Blood Urea Nitrogen 11 mg/dL (9-20); Calcium 9.1 mg/dL (8.4-10.2); Carbon Dioxide 26 mmol/L (22-32); Chloride 95 mmol/L (98-107); Cholesterol 116 mg/dL (140-199); Estimated Glomerular Filt Rate > 60 mL/min (>60); Globulin 3.7 g/dL (1.7-4.1); Glucose 84 mg/dL (70-99); HDL Cholesterol 35 mg/dL (40-60); HEMOLYSIS < 15 (0-50); Potassium 4.1 mmol/L (3.4-5.1); Sodium 129 mmol/L (137-145); Total Protein 8.2 g/dL (6.3-8.2); Triglycerides 52 mg/dL (35-150)
[2024-12-28 12:39] LABS: Prostate Specific Antigen 1.22 ng/mL (0.10-4.00)
== END ==
PROVIDERS: PCP Internal Medicine; Referring Provider Internal Medicine; Visit Provider Internal Medicine
DX: N40.1 Benign prostatic hyperplasia with lower urinary tract symptoms (principal); N13.8 Other obstructive and reflux uropathy; E78.2 Mixed hyperlipidemia; Z86.718 Personal history of other venous thrombosis and embolism
CPT/HCPCS: 36415; 80053; 80061; 84153; 85027

== ENCOUNTER → 2025-01-04 07:45 | Outpatient (CLI) | payer MEDICARE, BC, SELFPAY ==
[2025-01-04 08:38] LABS: Blood Urea Nitrogen 13 mg/dL (9-20); Calcium 9.2 mg/dL (8.4-10.2); Carbon Dioxide 25 mmol/L (22-32); Chloride 106 mmol/L (98-107); Estimated Glomerular Filt Rate > 60 mL/min (>60); Glucose 101 mg/dL (70-99); HEMOLYSIS < 15 (0-50); Potassium 3.8 mmol/L (3.4-5.1); Sodium 139 mmol/L (137-145)
== END ==
PROVIDERS: PCP Internal Medicine; Referring Provider Internal Medicine; Visit Provider Internal Medicine
DX: E87.1 Hypo-osmolality and hyponatremia (principal)
CPT/HCPCS: 36415; 80048